=== PATIENT | female | born 1995 | race Caucasian/White ===

== ENCOUNTER → 2021-02-14 10:41 | Outpatient (CLI) | payer BC, SELFPAY ==
--- NOTE | 2021-02-14 10:47 | US_ITS ---
STUDY: FIRST TRIMESTER OBSTETRICAL ULTRASOUND REASON FOR EXAM: Female, 25 years old viability LMP: 01/08/2021. TECHNIQUE: Transvaginal TECHNICAL QUALITY: Adequate. PRIOR ULTRASOUND: None. FINDINGS: There is visualization of a single gestational sac in a normal intrauterine position. The mean sac diameter (MSD) measures 1.8 cm, indicating an estimated gestational age (EGA) of 6 weeks, 5 days. The gestational sac shape is within normal limits. There is a visualized yolk sac. The yolk sac measures 3 mm.. The placenta is non-visualized. There is visualization of a live embryo. The crown-rump length (CRL) measures 7 mm, indicating an estimated gestational age (EGA) of 6 weeks, 4 days. There is demonstrated cardiac activity with a heart rate of 129 bpm. The estimated gestation age (EGA) by LMP is 7 weeks, 2 days. The estimated date of delivery (VARUN) by LMP is 09/23/2021. The estimated gestation age (EGA) by US is 6 weeks, 4 days. The estimated date of delivery (VARUN) by US is 10/06/2021. The uterus measures 9.9 cm x 5.9 cm x 5.3 cm. There is no demonstrated uterine fibroid. The cervix is closed. The right ovary measures 4.3 cm x 2.6 cm x 2.7 centimeters. There is a 2 cm x 2.2 cm x 2.1 cm cyst. There is no visualized right adnexal mass or complex lesion. The left ovary measures 2.3 cm x 1.6 cm x 1.5 cm. There is no left ovarian cyst. There is no visualized left adnexal mass or complex lesion. There is no fluid in the cul de sac. US/Transvaginal w/Preg US IMPRESSION: Single live intrauterine gestation with a mean gestational age of 6 weeks and 4 days. 2.2 cm x 2 cm x 2.1 cm right ovarian cyst. Electronically Signed: Wilmer Ramey MD at 15:40 EST , Service support ,
== END ==
LOC: OPUS 10:42
PROVIDERS: Referring Provider Obstetrics & Gynecology; Visit Provider Obstetrics & Gynecology
DX: Z34.90 Encounter for supervision of normal pregnancy, unspecified, unspecified trimester (principal)
CPT/HCPCS: 76817

== ENCOUNTER → 2021-02-27 | Outpatient (CLI) | payer BC, SELFPAY ==
[2021-02-27 16:43] LABS: Protein, Urine (Random) 26.7 mg/dL (<11.9); Protein:Creat Ratio 118 mg/g CRE (0-200)
[2021-02-27 17:03] LABS: Amphetamine Urine VISTA NEGATIVE (<1000 ng/mL); Barbiturate Urine VISTA NEGATIVE (< 200 ng/mL); Benzodiazepine Urine VISTA NEGATIVE (< 200 ng/mL); Cocaine Urine VISTA NEGATIVE (< 300 ng/mL); Ecstacy Urine VISTA NEGATIVE (< 500 ng/mL); Methadone Urine VISTA NEGATIVE (< 300 ng/mL); PCP Urine VISTA NEGATIVE (< 25 ng/mL); THC Urine VISTA NEGATIVE (< 50 ng/mL); Vista UDS pH Range 7
[2021-03-04 21:07] LABS: Chlamydia By Nucleic Acid AMP Negative (Negative)
[2021-03-05 08:53] LABS: Gonococcus By Nucleic Acid AMP Negative (Negative)
[2021-03-06 11:47] LABS: HPV Reflexed? NOT INDICATED
== END | disposition home or self-care (01) ==
LOC: LABSPEC 15:57
PROVIDERS: Visit Provider Obstetrics & Gynecology
DX: O13.9 Gestational [pregnancy-induced] hypertension without significant proteinuria, unspecified trimester (principal); Z3A.00 Weeks of gestation of pregnancy not specified
CPT/HCPCS: 80307; 82570; 84156; 87086; 87088; 87491; 87591; 88175; G0145

== ENCOUNTER → 2021-03-26 09:13 | Outpatient (CLI) | payer BC, SELFPAY ==
[2021-03-26 10:35] LABS: Absolute Lymphocyte Count 1.27 X10^3/uL (0.83-4.51); Absolute Neutrophil Count 9.9 X10^3/uL (2.0-7.7); Basophil# 0.02 X10^3/uL; Basophil% 0.2 % (0-1); Eosinophil# 0.12 X10^3/uL; Hematocrit 36.7 % (37-47); Lymphocyte # 1.27 X10^3/ul (0.83-4.51); Lymphocyte % 10.8 % (19-41); Mean Corp Hgb Conc 35.4 g/dL (32-36); Mean Corpuscular Hgb 30.2 pg (27.0-32.0); Mean Corpuscular Volume 85.2 fL (81-99); Mean Platelet Vol. 10.8 fl (6.2-12.0); Monocyte# 0.47 X10^3/uL; NRBC Flagged by Analyzer 0 % (0-5); Neutrophil # 9.88 X10^3/uL (2.7-7.7); Neutrophil % 83.8 % (47-70); Platelet Count 242 K/mm3 (150-450); RBC Distribution Width CV 12.8 % (11.6-14.6); RBC Distribution Width SD 39.7 fl (35.1-43.9); Red Blood Count 4.31 M/mm3 (4.2-5.4); White Blood Count 11.8 K/mm3 (4.4-11.0)
[2021-03-26 11:26] LABS: Glucose Challenge Gest 1H 50g 152 mg/dL (70-140)
[2021-03-26 11:31] LABS: NATERA MAILED SPECIMEN
[2021-03-26 12:23] LABS: HIV - WCH Non-Reactive (Nonreactive); Hepatitis B Surface Antigen Non-Reactive (Nonreactive); Hepatitis C Antibody Non-Reactive (Nonreactive); Rubella IgG Reactive (Nonreactive); Syphilis Antibodies Non-reactive
[2021-03-28 11:08] LABS: Dilute Prothrombin Time (dPT) 29.5 sec (0.0-47.6); Dilute Russell Viper Venom 29.8 sec (0.0-47.0); PTT-LA 24.7 sec (0.0-51.9); Thrombin Time 16.3 sec (0.0-23.0); dPT Confirm Ratio 1.22 Ratio (0.00-1.34)
[2021-03-29 09:41] LABS: Anti-Cardiolipin Ab, IgA, Qn < 9 APL U/mL (0-11); Anti-Cardiolipin Ab, IgG, Qn < 9 GPL U/mL (0-14); Anti-Cardiolipin Ab, IgM, Qn 10 MPL U/mL (0-12); Beta-2-Glycoprotein I IgA <9 (0-25); Beta-2-Glycoprotein I IgG <9 (0-20); Beta-2-Glycoprotein I IgM <9 (0-32); Interpretation Comment: (.)
== END ==
PROVIDERS: Referring Provider Obstetrics & Gynecology; Visit Provider Obstetrics & Gynecology
DX: Z31.430 Encounter of female for testing for genetic disease carrier status for procreative management (principal); O26.21 Pregnancy care for patient with recurrent pregnancy loss, first trimester; O99.211 Obesity complicating pregnancy, first trimester; E66.9 Obesity, unspecified; Z3A.00 Weeks of gestation of pregnancy not specified
CPT/HCPCS: 36415; 82950; 85025; 86146; 86147; 86703; 86762; 86780; 86803; 86850; 86900; 86901; 87340

== ENCOUNTER 2021-04-09 09:55 | Outpatient (CLI) | payer BC, SELFPAY ==
[2021-04-09 11:14] LABS: Glucose GTT-Gestation. Fasting 85 mg/dL (<105)
[2021-04-09 12:25] LABS: Glucose GTT-Gestational 1 Hr 161 mg/dL (<190)
[2021-04-09 14:32] LABS: Glucose GTT-Gestational 2 Hr 115 mg/dL (<165)
[2021-04-09 14:32] LABS: Glucose GTT-Gestational 3 Hr 103 L (<145)
[2021-04-15 09:07] LABS: Dilute Prothrombin Time (dPT) 36.2 sec (0.0-47.6); Dilute Russell Viper Venom 32.9 sec (0.0-47.0); PTT-LA 32.4 sec (0.0-51.9); Thrombin Time 14.9 sec (0.0-23.0); dPT Confirm Ratio 1.27 Ratio (0.00-1.34)
[2021-04-15 13:28] LABS: Beta-2-Glycoprotein I IgA <9 (0-25); Beta-2-Glycoprotein I IgG <9 (0-20); Beta-2-Glycoprotein I IgM <9 (0-32); Interpretation Comment: (.)
== END 2021-04-09 23:59 | disposition short-term general hospital (02) ==
LOC: LAB 10:04
PROVIDERS: Referring Provider Obstetrics & Gynecology; Visit Provider Obstetrics & Gynecology
DX: Z13.0 Encounter for screening for diseases of the blood and blood-forming organs and certain disorders involving the immune mechanism (principal); Z82.49 Family history of ischemic heart disease and other diseases of the circulatory system
CPT/HCPCS: 36415; 81241; 82951; 82952; 86146

== ENCOUNTER 2021-07-17 11:06 | Outpatient (CLI) | payer BC, SELFPAY ==
[2021-07-17 11:25] LABS: Absolute Lymphocyte Count 1.28 X10^3/uL (0.83-4.51); Basophil# 0.03 X10^3/uL; Basophil% 0.2 % (0-1); Eosinophil# 0.07 X10^3/uL; Eosinophils% 0.5 % (0-5); Hematocrit 35.3 % (37-47); Hemoglobin 11.6 g/dL (12.0-15.0); Lymphocyte # 1.28 X10^3/ul (0.83-4.51); Lymphocyte % 9.9 % (19-41); Mean Corp Hgb Conc 32.9 g/dL (32-36); Mean Corpuscular Hgb 27.9 pg (27.0-32.0); Mean Corpuscular Volume 84.9 fL (81-99); Mean Platelet Vol. 11.3 fl (6.2-12.0); Monocyte# 0.54 X10^3/uL; Monocyte% 4.2 % (0-10); NRBC Flagged by Analyzer 0 % (0-5); Neutrophil # 10.97 X10^3/uL (2.7-7.7); Neutrophil % 84.6 % (47-70); Platelet Count 222 K/mm3 (150-450); RBC Distribution Width CV 13.2 % (11.6-14.6); RBC Distribution Width SD 40.7 fl (35.1-43.9); Red Blood Count 4.16 M/mm3 (4.2-5.4)
[2021-07-17 11:35] LABS: Glucose Challenge Gest 1H 50g 174 mg/dL (70-140)
== END 2021-07-17 23:59 | disposition home or self-care (01) ==
LOC: PAVLAB 11:07
PROVIDERS: Referring Provider Obstetrics & Gynecology; Visit Provider Obstetrics & Gynecology
DX: Z34.90 Encounter for supervision of normal pregnancy, unspecified, unspecified trimester (principal); Z3A.25 25 weeks gestation of pregnancy
CPT/HCPCS: 36415; 82950; 85025

== ENCOUNTER → 2021-08-12 | Outpatient (CLI) | payer BC, SELFPAY ==
--- NOTE | 2021-08-12 08:58 | US_ITS ---
STUDY: SECOND AND THIRD TRIMESTER OBSTETRICAL ULTRASOUND - LIMITED REASON FOR EXAM: Female, 25 years old chronic htn -- 32w LMP: 12/30/2020. PRIOR ULTRASOUND: Comparison is made with prior study of 02/14/2021. TECHNIQUE: Transabdominal TECHNICAL QUALITY: Adequate. FINDINGS: There is a single intrauterine fetus. The fetus is in a cephalic presentation. There is demonstrated cardiac activity with a heart rate of 153 bpm. There is a normal amniotic fluid volume. The largest amniotic fluid pocket measures 4.5 cm. The amniotic fluid index (NATALYA) is 15.3 cm. The placenta is posterior in location and is not low lying. There are Grade 2 placental changes. The cervix was not measured. Patient''s bladder wasn''t filled adequately. Patient refused a transvaginal examination. BIOMETRY: BPD: 8.1 cm: 32 weeks, 3 days HC: 29.7 cm: 32 weeks, 6 days AC: 28.8 cm: 32 weeks, 5 days FL: 6.5 cm: 33 weeks, 3 days Age by LMP: 32 weeks, 1 days. VARUN by LMP: 10/06/2021. age by prior US: 32 weeks, 6 days. VARUN by prior US: 10/01/2021. age by current US: 32 weeks, 5 days. VARUN by current US: 10/02/2021. Estimated weight: 2113 grams, +/- 317 grams, 69 percentile. US/OB Limited With Biometrics IMPRESSION: Single live intrauterine gestation with a mean gestational age of 32 weeks and 6 days. The measurements obtained today following thin the normal expected range. Electronically Signed: Wilmer Ramey MD at 11:10 EDT ,
== END | disposition home or self-care (01) ==
PROVIDERS: Visit Provider Obstetrics & Gynecology
DX: O10.913 Unspecified pre-existing hypertension complicating pregnancy, third trimester (principal); Z3A.32 32 weeks gestation of pregnancy
CPT/HCPCS: 76816

== ENCOUNTER → 2021-08-19 | Outpatient (CLI) | payer BC, SELFPAY ==
--- NOTE | 2021-08-19 09:02 | US_ITS ---
STUDY: SECOND AND THIRD TRIMESTER OBSTETRICAL ULTRASOUND - LIMITED REASON FOR EXAM: Female, 26 years old chronic htn -- 36w- -- NATALYA LMP: 12/30/2020. PRIOR ULTRASOUND: Comparison is made with prior examination dated 08/12/2021. TECHNIQUE: Transabdominal TECHNICAL QUALITY: Adequate. FINDINGS: There is a single intrauterine fetus. The fetus is in a cephalic presentation. There is demonstrated cardiac activity with a heart rate of 144 bpm. There is a normal amniotic fluid volume. The largest amniotic fluid pocket measures 6.84 cm. The amniotic fluid index (NATALYA) is 14.12 cm. The placenta is posterior in location and is not low lying. There are Grade 2 placental changes. The cervix measures 3.3 cm in length. BIOMETRY: Age by LMP: 33 weeks, 1 days. VARUN by LMP: 10/06/2021. US/OB Limited (No Biometrics) IMPRESSION: Normal amniotic fluid index. Electronically Signed: Wilmer Ramey MD at 12:31 EDT ,
== END | disposition home or self-care (01) ==
LOC: OPUS 08:59
PROVIDERS: Visit Provider Obstetrics & Gynecology
DX: O10.913 Unspecified pre-existing hypertension complicating pregnancy, third trimester (principal); Z3A.36 36 weeks gestation of pregnancy
CPT/HCPCS: 76815

== ENCOUNTER → 2021-08-26 | Outpatient (CLI) | payer BC, SELFPAY ==
--- NOTE | 2021-08-26 08:56 | US_ITS ---
STUDY: SECOND AND THIRD TRIMESTER OBSTETRICAL ULTRASOUND - LIMITED REASON FOR EXAM: Female, 26 years old NATALYA ONLY PRIOR ULTRASOUND: Limited obstetric ultrasound from 08/19/2021. TECHNIQUE: Limited transabdominal obstetric pelvic ultrasound performed. FINDINGS: Single live intrauterine fetus in cephalic presentation with heart rate of 155 BPM. Grade 2 fundal placenta with no placenta previa. Cervix is obscured by shadowing but appears closed, measuring grossly 3 cm length. Amniotic fluid index within normal limits, 8.9 cm. Largest vertical pocket of fluid measures 3.7 cm. Provided estimated gestational age of 34 weeks 1 day with VARUN of 10/06/2021. biometrics not performed. Maternal adnexa are not imaged. US/OB Limited (No Biometrics) IMPRESSION: Single live intrauterine with normal amniotic fluid index. Electronically Signed: Anthony Díaz MD at 3:41 EDT ,
== END | disposition home or self-care (01) ==
PROVIDERS: Visit Provider Obstetrics & Gynecology
DX: O10.919 Unspecified pre-existing hypertension complicating pregnancy, unspecified trimester (principal); Z3A.00 Weeks of gestation of pregnancy not specified
CPT/HCPCS: 76815

== ENCOUNTER 2021-08-28 19:50 | Outpatient (CLI) | payer BC, SELFPAY ==
[2021-08-28 20:18] VITALS: BMI 41.7
[2021-08-28 20:19] VITALS: TEMP 37.4; O2SAT 97
[2021-08-28 20:20] VITALS: BP 110/72; PULSE 96
[2021-08-28 21:20] LABS: ROM Internal Control Test YES-OK TO RESULT pt. (Internal QC); ROM Patient Test Negative (Negative)
--- NOTE | 2021-08-28 22:07 | OB.TRI.HP_ITS ---
HPI - General HPI Narrative ROBIN COTE, is a 26 y/o @ 35 weeks who presents to L&D with possible rupture of amniotic membranes. She states that she felt more than just urine escape while using the bathroom and also some cramping. The patient also admitted to intercourse earlier in the day. Maternal Data Information VARUN Calculator Estimated Delivery Date Method Current WG Current Estimate 10/06/21 Ultrasound #1 35w 3d Other Estimates 10/02/21 Ultrasound #2 36w 0d PFSH PFSH Home Medications multivitamin no.47-iron fum 27 mg-folate no.1 1 mg-dha 300 mg capsule 1 cap PO DAILY 02/26/21 [History Last Taken 08/30/21 08:00] nifedipine 30 mg tablet,extended release 24 hr 30 mg PO DAILY #30 tab 05/15/21 [Rx Last Taken 08/30/21 08:00] aspirin 81 mg tablet,delayed release 81 mg PO DAILY 08/02/21 [History Last Taken 08/30/21 08:00] blood sugar diagnostic #150 ea 08/02/21 [Rx Last Taken Unknown] lancets 33 gauge #150 ea 08/02/21 [Rx Last Taken Unknown] pen needle, diabetic 32 gauge x 5/32 #100 ea 08/09/21 [Rx Last Taken Unknown] insulin NPH isoph U-100 human [Humulin N NPH Insulin KwikPen] 12 unit SUBCUT BID 08/28/21 [History Last Taken 08/30/21 08:00] Allergy/AdvReac Type Severity Reaction Status Date / Time No Known Allergies Allergy Verified 09/03/21 09:51 Family History Other Heart disease Hypertension Surgical History H/O section Social History adopted: No household members: family housing: house number of children: 1 current occupational status: employed current occupation: RN pets and animals: Yes Smoking Status: Never smoker second hand exposure: Yes substance use type: does not use seatbelt use: always do you feel safe at home: Yes additional social history: Fianc?- [place] History 2 Elective abortions Hx Para 1 Spontaneous abortions Hx # Term Pregnancies Ectopic pregnancies Hx # Pregnancies 1 Multiple births # of living children 1 Past Pregnancies Del. Date Name GA/Weeks Outcome Route Bth Weight [facility] Kvng 33 live - 4lbs 10oz Male spinal Anahy Aguilar Dr. [place] Delivery Date: 09/24/13 DFM- STAT C/S Baby had blood clots in IVC & Pulmonary artery. Pulmonary atresia r/o. Placenta was calcified and had blood clots. GHTN. Nonsmoker. Placenta previa resolved at 22 weeks Vania Alejo Visit Details Expected Delivery Route/Plan RLTCS patient counseled regarding risks/benefits of trial of labor versus repeat . ACOG/uptodate education given to patient. 56 % likelihood of success per calculator TOLAC consent form signed: [] Labor Preferences- CB/BF classes: [] labor support person: [] labor intervention preferences: [] pain management options preferred: [] cut cord/dad catch: [] : [] PP control planned: [] discussed possible routes of delivery and associated risks: [] special requests: [] Plans Covid status: positive feb 2020. vaccinated. Flu vaccine: discussed. Tdap vaccine: [] Rhogam: [] LARC form signed: [] Problem list reviewed and updated with the most current plan of care details and appropriate orders placed. Relevant counseling for the gestational age provided. Continue routine care and follow up unless otherwise noted in visit notes/problem list details OB Flowsheet Initial Weight: 200 lb Date -?-?-?-?-?-?-?-?-?-?-?-?- EGA Weight BP Urine Prot -?-?-?-?-?-?-?-?-?-?-?-?- Glucose FHR FuHt Pres Dilation -?-?-?-?-?-?-?-?-?-?-?-?- Effaced St Visit Note 02/27/21 -?-?-?-?-?-?-?-?-?-?-?-?- 8w 3d 200 lb (+0 oz) 136/82 -?-?-?-?-?-?-?-?-?-?-?-?- -?-?-?-?-?-?-?-?-?-?-?-?- JV- CRL was calc ulated on 02/14 and VARUN is 10/05/2021. CRL today is 9w0d. no change in VARUN. Consulting mfm for h/o 31 week delivery due to low bpp and blood clots in IVC and pulm artery of the baby. 03/26/21 -?-?-?-?-?-?-?-?-?-?-?-?- 12w 2d 205 lb (+5 lb) 120/80 -?-?-?-?-?-?-?-?-?-?-?-?- 145 -?-?-?-?-?-?-?-?-?-?-?-?- JV- some labs st ill pending. note to not smoke the residents given. GCT today. 04/30/21 -?-?-?-?-?-?-?-?-?-?-?-?- 17w 2d 209 lb (+9 lb) 118/82 Negative -?-?-?-?-?-?-?-?-?-?-?-?- Negative 145 -?-?-?-?-?-?-?-?-?-?-?-?- SM- no vb lof cr amping 05/28/21 -?-?-?-?-?-?-?-?-?-?-?-?- 21w 2d 217 lb (+17 lb) 115/73 Negative -?-?-?-?-?-?-?-?-?-?-?-?- Negative 145 -?-?-?-?-?-?-?-?-?-?-?-?- SM- no vb lof go od fm no reuglar ctx discussed RLTCS and BS 06/25/21 -?-?-?-?-?-?-?-?-?-?-?-?- 25w 2d 221 lb (+21 lb) 110/76 Negative -?-?-?-?-?-?-?-?-?-?-?-?- Negative 140 25 -?-?-?-?-?-?-?-?-?-?-?-?- SM- no vb lof go od fm nor eugalr ctx 07/17/21 -?-?-?-?-?-?-?-?-?-?-?-?- 28w 3d 222 lb 4 oz (+22 lb 4 oz) 138/88 -?-?-?-?-?-?-?-?-?-?-?-?- 145 29 -?-?-?-?-?-?-?-?-?-?-?-?- JV- no cramping or spotting. no complaints. abnormal GCT of 176, pt does not want to do a 3 hr and would rather be seen by Dr. Smart and start monitoring glucose levels. 08/01/21 -?-?-?-?-?-?-?-?-?-?-?-?- 30w 4d 226 lb (+26 lb) 94/60 Negative -?-?-?-?-?-?-?-?-?-?-?-?- Negative 145 31 -?-?-?-?-?-?-?-?-?-?-?-?- SM- no vb lof in consistent fm at times, no regular ctx some increased pressure 08/14/21 -?-?-?-?-?-?-?-?-?-?-?-?- 32w 3d 227 lb (+27 lb) 102/72 -?-?-?-?-?-?-?-?-?-?-?-?- 140 -?-?-?--?-?-?-?-?-?-?-?-?- MH-NST only reac tive 08/16/21 -?-?-?-?-?-?-?-?-?-?-?-?- 32w 5d 225 lb 4 oz (+25 lb 4 oz) 130/78 Negative -?-?-?-?-?-?-?-?-?-?-?-?- Negative 130 -?-?-?-?-?-?-?-?-?-?-?-?- JV- pt is starti ng insulin today. had growth scan and has bpp on thursday. no lof, vaginal bleeding, or dec fm. 08/20/21 -?-?-?-?-?-?-?-?-?-?-?-?- 33w 2d 228 lb (+28 lb) 106/82 Negative -?-?-?-?-?-?-?-?-?-?-?-?- Negative 130 -?-?-?-?-?-?-?-?-?-?-?-?- SM- no vb lof so me fm dec when she has ctx, reassuring NST today. BS mostly controlled, increased to 132 is highest. 08/23/21 -?-?--?-?-?-?-?-?-?-?-?-?- 33w 5d 226 lb (+26 lb) 130/70 Negative -?-?-?-?-?-?-?-?-?-?-?-?- Negative 150 -?-?-?-?-?-?-?-?-?-?-?-?- JV- NST reactive . continue twice weekly. bpp thursday. growth up to date. next due beginning of September. 08/26/21 -?-?-?-?-?-?-?-?-?-?-?-?- 34w 1d 228 lb (+28 lb) 132/70 Negative -?-?-?-?-?-?-?-?-?-?-?-?- Negative 140 -?-?-?-?-?-?-?-?-?-?-?-?- Mh-NST only reac tive 08/28/21 -?-?--?-?-?-?-?-?-?-?-?-?- 34w 3d 228 lb 3.2 oz (+28 lb 3.2 oz) 110/72 -?-?-?-?-?-?-?-?-?-?-?-?- -?-?-?-?-?-?-?-?-?-?-?-?- 08/30/21 -?-?-?-?-?-?-?-?-?-?-?-?- 34w 5d 228 lb (+28 lb) 132/80 -?-?-?-?-?-?-?-?-?-?-?-?- 140 -?-?-?-?-?-?-?-?-?-?-?-?- fht variable- to l and d for extended monitoring and BPP 09/03/21 -?-?-?-?-?-?-?-?-?-?-?-?- 35w 2d 229 lb (+29 lb) 126/78 Trace -?-?-?-?-?-?-?-?-?-?-?-?- Negative 140 -?-?-?-?-?-?-?-?-?-?-?-?- MH-NST only reac tive. BPP completed earlier, results pending. ROS Constitutional Constitutional: Reports systems reviewed and no addt'l complaints, except as documented Gastrointestinal Gastrointestinal: Denies bloating, constipation, cramping, diarrhea, nausea or vomiting Genitourinary Genitourinary: Reports other Details: Denies vaginal odor, vaginal bleeding, or vaginal discharge ; Denies difficulty urinating or flank pain Physical Exam HEENT normocephalic Resp normal respiratory effort and normal air movement no CVA tenderness Amniotic Fluid: ROM+plus negative - and other Extremity normal to inspection General Extremity: edema bilateral (trace ) NST FHR Rate Baby A Baseline: 140 Variability:: Moderate Accelerations:: 15 x 15 Decelerations:: None NST Reactive:: Yes FHR Category:: Category I Assessment & Plan (1) Gestational diabetes: QUALIFIERS: Gestational diabetes mellitus control: insulin- controlled Trimester: third trimester Qualified Code(s): O24.414 - Gestational diabetes mellitus in , insulin controlled COMMENT: starting insulin 08/16/21 (2) Chronic hypertension: COMMENT: on procardia, delivery at 38w, CMP, CBC, urine pro creat, growth at 32w nl, and 36w, twice weekly NST at 32-delivery. Send referral to [facility] (3) Obesity affecting : QUALIFIERS: Trimester: third trimester Qualified Code(s): O99.213 - Obesity complicating , third trimester COMMENT: encouraged healthy weight gain. (4) Supervision of high risk , antepartum: COMMENT: PRR VARUN: 10/06/21 GIRL Magdalena PC: Kvng Marroquin?: [place] ([place] 2yr old) (5) H/O section: COMMENT: STAT C/S DFM at 33 weeks, RLTCSBS scheduled for 09/23 @ 7:30am SM (6) : QUALIFIERS: Weeks of gestation: 34 weeks Qualified Code(s): Z3A.34 - 34 weeks gestation of COMMENT: nl anatomy, growth US every 4 wks, 2x wkly NST at 32 wks, NIPT low risk, carrier- neg , NTAALYA borderline low, nl US 09/03 PLAN: False labor- pt will keep next scheduled office visit. dc to home. Charges/Coding Multi Select Codes Visit Charges Office Visit/Consults: 52612 OV L3 Est Urinary/Genital Urinary/Genital CPT Codes: 79538-75 non-stress test Interp
== END 2021-08-28 21:35 | disposition home or self-care (01) ==
LOC: WPOUT 19:58 → WP 19:58
PROVIDERS: Visit Provider Obstetrics & Gynecology
DX: O24.414 Gestational diabetes mellitus in pregnancy, insulin controlled (principal); O34.219 Maternal care for unspecified type scar from previous cesarean delivery; O10.013 Pre-existing essential hypertension complicating pregnancy, third trimester; O99.213 Obesity complicating pregnancy, third trimester; Z86.16 Personal history of COVID-19; Z3A.35 35 weeks gestation of pregnancy
CPT/HCPCS: 59050; 84112; 99218; G0378

== ENCOUNTER 2021-08-30 15:50 | Outpatient (CLI) | payer BC, SELFPAY ==
[2021-08-30 16:01] VITALS: BMI 42.0
--- NOTE | 2021-08-30 16:14 | US_ITS ---
rScriptor Unformatted Report Gender: Female Age: 26 years Exam: US Biophysical Profile W/O Nonst Comparison: Report from August 26, 2021, 4 quadrant NATALYA reported to be 8.9 cm, largest fluid pocket 3.7 cm. History: Nonreactive NST LIMITED WELL BEING EXAM NATALYA: 4 quadrant NATALYA 18.17 cm. Largest pocket 8.1 cm. Within normal limits. Single live intrauterine fetus, cephalic presentation. heart rate 152 bpm and 135 bpm. Fundal placenta. Grade 2. Biophysical profile: 88. Posterior 2 points each for breathing motion, gross body movements, tone and NATALYA. US/Biophysical Prof W/O Non Stres IMPRESSION: No acute complications of . Biophysical profile 88. Normal amniotic fluid volume. Electronically Signed: Mary Christianson MD at 23:11 EDT ,
[2021-08-30 16:29] VITALS: TEMP 37.2
[2021-08-30 16:30] VITALS: BP 131/71; PULSE 86; PULSE 91; O2SAT 98
[2021-08-30 17:53] LABS: Absolute Neutrophil Count 9.4 X10^3/uL (2.0-7.7); Basophil# 0.01 X10^3/uL; Basophil% 0.1 % (0-1); Eosinophil# 0.04 X10^3/uL; Eosinophils% 0.3 % (0-5); Hematocrit 34.9 % (37-47); Hemoglobin 11.4 g/dL (12.0-15.0); Lymphocyte % 11.3 % (19-41); Mean Corp Hgb Conc 32.7 g/dL (32-36); Mean Corpuscular Hgb 27.2 pg (27.0-32.0); Mean Corpuscular Volume 83.3 fL (81-99); Mean Platelet Vol. 12.4 fl (6.2-12.0); Monocyte# 0.73 X10^3/uL; Monocyte% 6.3 % (0-10); NRBC Flagged by Analyzer 0 % (0-5); Neutrophil # 9.38 X10^3/uL (2.7-7.7); Neutrophil % 81.6 % (47-70); Platelet Count 211 K/mm3 (150-450); RBC Distribution Width CV 14.2 % (11.6-14.6); RBC Distribution Width SD 42.6 fl (35.1-43.9); Red Blood Count 4.19 M/mm3 (4.2-5.4); White Blood Count 11.5 K/mm3 (4.4-11.0)
--- NOTE | 2021-09-03 16:18 | OB.TRI.PN_ITS ---
Progress Notes Date of Service: 08/30/21 Progress Note: Patient presents for triage evaluation secondary to variable decel and contractions FHT: 140 Moderate variability reactive no decelerations category I tracing [place]: irregular and irritability Contractions Assessment and plan: threatened labor, no cervical change bpp 8/8 Reactive NST, reassuring maternal and status patient discharged to home to follow-up as scheudled. See problem list details for additional plan information. Laboratory Studies: Laboratory Tests 08/30/21 08/30/21 Range/Units 17:30 17:30 WBC 11.5 H (4.4-11.0) K/mm3 RBC 4.19 L (4.2-5.4) M/mm3 Hgb 11.4 L (12.0-15.0) g/dL Hct 34.9 L (37-47) % MCV 83.3 (81-99) fL MCH 27.2 (27.0-32.0) pg MCHC 32.7 (32-36) g/dL RDW Std Deviation 42.6 (35.1-43.9) fl RDW Coeff of [place] 14.2 (11.6-14.6) % Plt Count 211 (150-450) K/mm3 MPV 12.4 H (6.2-12.0) fl Immature Gran % (Auto) 0.400 (0.0-0.9) % Neut % (Auto) 81.6 H (47-70) % Lymph % (Auto) 11.3 L (19-41) % [place] % (Auto) 6.3 (0-10) % Eos % (Auto) 0.3 (0-5) % Baso % (Auto) 0.1 (0-1) % Absolute Neuts (auto) 9.4 H (2.0-7.7) X10^3/uL Absolute Lymphs (auto) 1.30 (0.83-4.51) X10^3/uL Nucleated RBC % 0 (0-5) % Blood Type B POSITIVE Antibody Screen NEGATIVE
== END 2021-08-30 19:00 | disposition home or self-care (01) ==
LOC: WPOUT 15:54 → WP 15:54
PROVIDERS: Obstetrics & Gynecology; Referring Provider Obstetrics & Gynecology; Visit Provider Obstetrics & Gynecology
DX: O47.9 False labor, unspecified (principal)
CPT/HCPCS: 96360; 36415; 59025; 59050; 76819; 85025; 86850; 86900; 86901; 99218; G0378

== ENCOUNTER → 2021-09-03 | Outpatient (CLI) | payer BC, SELFPAY ==
--- NOTE | 2021-09-03 08:52 | US_ITS ---
HISTORY: NATALYA borderline low. TECHNIQUE: Transabdominal pelvic ultrasound was performed. 33 images. COMPARISON: 08/30/2021. FINDINGS: INTRAUTERINE GESTATION(s): Single. PRESENTATION: Cephalic. PLACENTA: Fundal and grade 3. CERVIX: 3.3 cm in length and closed. HEART MOTION: 145 bpm. AMNIOTIC FLUID INDEX (NATALYA): 16.6 cm. Largest fluid pocket 5.9 cm. US/OB Limited (No Biometrics) IMPRESSION: Single living intrauterine . Amniotic fluid index 16.6 cm, within normal limits Electronically Signed: Sulma Rosenbaum MD at 14:00 EDT ,
== END | disposition home or self-care (01) ==
LOC: OPUS 08:50
PROVIDERS: Visit Provider Obstetrics & Gynecology
DX: Z34.90 Encounter for supervision of normal pregnancy, unspecified, unspecified trimester (principal)
CPT/HCPCS: 76815

== ENCOUNTER → 2021-09-09 | Outpatient (CLI) | payer BC, SELFPAY ==
--- NOTE | 2021-09-09 08:48 | US_ITS ---
STUDY: SECOND AND THIRD TRIMESTER OBSTETRICAL ULTRASOUND REASON FOR EXAM: Female, 26 years old GROWTH LMP: 12/30/2020. TECHNIQUE: Transabdominal TECHNICAL QUALITY: Adequate. PRIOR ULTRASOUND: Comparison is made with prior study dated 08/12/2021 and 09/03/2021. FINDINGS: There is a single intrauterine fetus. The fetus is in a cephalic presentation. There is demonstrated cardiac activity with a heart rate of 131 bpm. There is a normal amniotic fluid volume. The largest amniotic fluid pocket measures 5.7 cm. The amniotic fluid index (NATALYA) is 16.2 cm. The placenta is fundal in location. There are Grade 2 placental changes. Cervical length was not measured due to the head position.. The adnexal regions are not visualized. BIOMETRY: BPD: 8.56 cm: 34 weeks, 3 days HC: 31.09 cm: 34 weeks, 5 days AC: 33.63 cm: 37 weeks, 3 days FL: 7.22 cm: 36 weeks, 6 days CI: 79% FL/BPD: 84% FL/HC: FL/AC: 21% HC/AC: 0.92 age by current US: 35 weeks, 3 days. VARUN by current US: 10/11/2021. Estimated weight: 3081 grams, +/- 462 grams, 73 %. age by prior US: 36 weeks, 5 days. VARUN by prior US: 10/02/2021. Age by LMP: 36 weeks, 1 days. VARUN by LMP: 10/06/2021. US/OB Limited With Biometrics IMPRESSION: Single live uterine gestation with a mean gestational age of 36 weeks and 5 days. The measurements obtained today following within the normal expected range. Electronically Signed: Wilmer Ramey MD at 12:41 EDT ,
== END | disposition home or self-care (01) ==
LOC: OPUS 08:48
PROVIDERS: Referring Provider Obstetrics & Gynecology; Visit Provider Obstetrics & Gynecology
DX: Z34.93 Encounter for supervision of normal pregnancy, unspecified, third trimester (principal); Z3A.35 35 weeks gestation of pregnancy
CPT/HCPCS: 76816

== ENCOUNTER → 2021-09-13 | Outpatient (CLI) | payer BC, SELFPAY | END | disposition home or self-care (01) | LOC: LABSPEC 13:39 | PROVIDERS: Visit Provider Obstetrics & Gynecology | DX: O09.90 Supervision of high risk pregnancy, unspecified, unspecified trimester (principal) | CPT/HCPCS: 87081 ==

== ENCOUNTER 2021-09-16 12:30 | Inpatient (IN) | payer BC, SELFPAY ==
[2021-09-16] VITALS (14 sets, daily range): BP systolic 100–124; BP diastolic 49–73; PULSE 69–92; RESP 12–18; TEMP 36.3–36.9; O2SAT 96–99; BMI 42.9
--- NOTE | 2021-09-16 13:04 | HP.PCM.OB_ITS ---
HPI - General General Date of Admission: 09/16/21 HPI Narrative ROBIN COTE, is a 26 F who presents with non reactive nst in office with a heart rate variable deceleration, and has had persistent changes in insulin without adequate control of blood sugars so the decision was made to proceed with delivery. Maternal Data Information VARUN Calculator Estimated Delivery Date Method Current WG Current Estimate 10/06/21 Ultrasound #1 37w 1d Other Estimates 10/02/21 Ultrasound #2 37w 5d PFSH PFSH Home Medications multivitamin no.47-iron fum 27 mg-folate no.1 1 mg-dha 300 mg capsule 1 cap PO DAILY 02/26/21 [History Last Taken 09/16/21 07:30] aspirin 81 mg tablet,delayed release 81 mg PO DAILY 08/02/21 [History Last Taken 09/16/21 07:30] blood sugar diagnostic #150 ea 08/02/21 [Rx Last Taken Unknown] lancets 33 gauge #150 ea 08/02/21 [Rx Last Taken Unknown] pen needle, diabetic 32 gauge x 5/32 #100 ea 08/09/21 [Rx Last Taken Unknown] insulin NPH isoph U-100 human [Humulin N NPH Insulin KwikPen] 14 unit SUBCUT BID 08/28/21 [History Last Taken 09/16/21 07:30] nifedipine [Procardia XL] 30 mg PO DAILY 09/16/21 [History Last Taken 09/16/21 07:30] Allergy/AdvReac Type Severity Reaction Status Date / Time No Known Allergies Allergy Verified 09/16/21 12:57 Family History Other Heart disease Hypertension Surgical History H/O section Social History adopted: No household members: family housing: house number of children: 1 current occupational status: employed current occupation: RN pets and animals: Yes Smoking Status: Never smoker second hand exposure: Yes substance use type: does not use seatbelt use: always do you feel safe at home: Yes additional social history: Fianc?- Dalton History 2 Elective abortions Hx Para 1 Spontaneous abortions Hx # Term Pregnancies Ectopic pregnancies Hx # Pregnancies 1 Multiple births # of living children 1 Past Pregnancies Del. Date Name GA/Weeks Outcome Route Bth Weight Gen Labor Lgth Anesthesia Del Locatn Provider FOB 09/24/13 Kvng 33 live - 4lbs 10oz Male spinal Anahy [place] Delivery Date: 09/24/13 DFM- STAT C/S Baby had blood clots in IVC & Pulmonary artery. Pulmonary atresia r/o. Placenta was calcified and had blood clots. GHTN. Nonsmoker. Placenta previa resolved at 22 weeks Vania Alejo Visit Details Expected Delivery Route/Plan RLTCS patient counseled regarding risks/benefits of trial of labor versus repeat . ACOG/uptodate education given to patient. 56 % likelihood of success per calculator TOLAC consent form signed: [] Labor Preferences- CB/BF classes: [] labor support person: [] labor intervention preferences: [] pain management options preferred: [] cut cord/dad catch: [] : [] PP control planned: [] discussed possible routes of delivery and associated risks: [] special requests: [] Plans Covid status: positive feb 2020. vaccinated. Flu vaccine: discussed. Tdap vaccine: [] Rhogam: [] LARC form signed: [] Problem list reviewed and updated with the most current plan of care details and appropriate orders placed. Relevant counseling for the gestational age provided. Continue routine care and follow up unless otherwise noted in visit notes/problem list details OB Flowsheet Initial Weight: 200 lb Date -?-?-?-?-?-?-?-?-?-?-?-?- EGA Weight BP Urine Prot -?-?-?-?-?-?-?-?-?-?-?-?- Glucose FHR FuHt Pres Dilation -?-?-?-?-?-?-?-?-?-?-?-?- Effaced St Visit Note 02/27/21 -?-?-?-?-?-?-?-?-?-?-?-?- 8w 3d 200 lb (+0 oz) 136/82 -?-?-?-?-?-?-?-?-?-?-?-?- -?-?-?-?-?-?-?-?-?-?-?-?- JV- CRL was calc ulated on 02/14 and VARUN is 10/05/2021. CRL today is 9w0d. no change in VARUN. Consulting mfm for h/o 31 week delivery due to low bpp and blood clots in IVC and pulm artery of the baby. 03/26/21 -?-?-?-?-?-?-?-?-?-?-?-?- 12w 2d 205 lb (+5 lb) 120/80 -?-?-?-?-?-?-?-?-?-?-?-?- 145 -?-?-?-?-?-?-?-?-?-?-?-?- JV- some labs st ill pending. note to not smoke the residents given. GCT today. 04/30/21 -?-?-?-?-?-?-?-?-?-?-?-?- 17w 2d 209 lb (+9 lb) 118/82 Negative -?-?-?-?-?-?-?-?-?-?-?-?- Negative 145 -?-?-?-?-?-?-?-?-?-?-?-?- SM- no vb lof cr amping 05/28/21 -?-?-?-?-?-?-?-?-?-?-?-?- 21w 2d 217 lb (+17 lb) 115/73 Negative -?-?-?-?-?-?-?-?-?-?-?-?- Negative 145 -?-?-?-?-?-?-?-?-?-?-?-?- SM- no vb lof go od fm no reuglar ctx discussed RLTCS and BS 06/25/21 -?-?-?-?-?-?-?-?-?-?-?-?- 25w 2d 221 lb (+21 lb) 110/76 Negative -?-?-?-?-?-?-?-?-?--?-?-?- Negative 140 25 -?-?-?-?-?-?-?-?-?-?-?-?- SM- no vb lof go od fm nor eugalr ctx 07/17/21 -?-?-?-?-?-?-?-?-?-?-?-?- 28w 3d 222 lb 4 oz (+22 lb 4 oz) 138/88 -?-?-?-?-?-?-?-?-?-?-?-?- 145 29 -?-?-?-?-?-?-?-?-?-?-?-?- JV- no cramping or spotting. no complaints. abnormal GCT of 176, pt does not want to do a 3 hr and would rather be seen by Dr. Smart and start monitoring glucose levels. 08/01/21 -?-?-?-?-?-?-?-?-?-?-?-?- 30w 4d 226 lb (+26 lb) 94/60 Negative -?-?-?-?-?-?-?-?-?-?-?-?- Negative 145 31 -?-?-?-?-?-?-?-?-?-?-?-?- SM- no vb lof in consistent fm at times, no regular ctx some increased pressure 08/14/21 -?-?-?-?-?-?-?-?-?-?-?-?- 32w 3d 227 lb (+27 lb) 102/72 -?-?-?-?-?-?-?-?-?-?-?-?- 140 -?-?-?-?-?-?-?-?-?-?-?-?- MH-NST only reac tive 08/16/21 -?-?-?-?-?-?-?-?-?-?-?-?- 32w 5d 225 lb 4 oz (+25 lb 4 oz) 130/78 Negative -?-?-?-?-?-?-?-?-?-?-?-?- Negative 130 -?-?-?-?-?-?-?-?-?-?-?-?- JV- pt is starti ng insulin today. had growth scan and has bpp on thursday. no lof, vaginal bleeding, or dec fm. 08/20/21 -?-?-?-?-?-?-?-?-?-?-?-?- 33w 2d 228 lb (+28 lb) 106/82 Negative -?-?-?-?--?-?-?-?-?-?-?-?- Negative 130 -?-?-?-?-?-?-?-?-?-?-?-?- SM- no vb lof so me fm dec when she has ctx, reassuring NST today. BS mostly controlled, increased to 132 is highest. 08/23/21 -?-?-?-?-?-?-?-?-?-?-?-?- 33w 5d 226 lb (+26 lb) 130/70 Negative -?-?-?-?-?-?-?-?-?-?-?-?- Negative 150 -?-?-?-?-?-?-?-?-?-?-?-?- JV- NST reactive . continue twice weekly. bpp thursday. growth up to date. next due beginning of September. 08/26/21 -?-?-?-?-?-?-?-?-?-?-?-?- 34w 1d 228 lb (+28 lb) 132/70 Negative -?-?-?-?-?-?-?-?-?-?-?-?- Negative 140 -?-?-?-?-?-?-?-?-?-?-?-?- Mh-NST only reac tive 08/28/21 -?-?-?-?-?-?-?-?-?-?-?-?- 34w 3d 228 lb 3.2 oz (+28 lb 3.2 oz) 110/72 -?-?-?-?-?-?-?-?-?-?-?-?- -?-?-?-?-?-?-?-?-?-?-?-?- 08/30/21 -?-?-?-?-?-?-?-?-?-?-?-?- 34w 5d 228 lb (+28 lb) 132/80 -?-?-?-?-?-?-?-?-?-?-?-?- 140 -?-?-?-?-?-?-?-?-?-?-?-?- fht variable- to l and d for extended monitoring and BPP 09/03/21 -?-?-?-?-?-?-?-?-?-?-?-?- 35w 2d 229 lb (+29 lb) 126/78 Trace -?-?-?-?-?-?-?-?-?-?-?-?- Negative 140 -?-?-?-?-?-?-?-?-?-?-?-?- -NST only reac tive. BPP completed earlier, results pending. 09/06/21 -?-?-?-?-?-?-?-?-?-?-?-?- 35w 5d 231 lb 6 oz (+31 lb 6 oz) 138/80 Negative -?-?-?-?-?-?-?-?-?-?-?-?- Negative 140 -?-?-?-?-?-?-?-?-?-?-?-?- JV- no lof ,vagi nal bleeding or dec fm. fasting glucose levels are normal however 2 hr pp are still 130-140. starting r insulin. 09/09/21 -?-?-?-?-?-?-?-?-?-?-?-?- 36w 1d 230 lb (+30 lb) 124/80 Negative -?-?-?-?-?-?-?-?-?-?-?-?- Negative 140 -?-?-?-?-?-?-?-?-?-?-?-?- -NST only reac tive 09/13/21 -?-?-?-?-?-?-?-?-?-?-?-?- 36w 5d 253 lb (+53 lb) 128/82 Negative -?-?-?-?-?-?-?-?-?-?-?-?- Negative 140 37 -?-?-?-?-?-?-?-?-?-?-?-?- JV- nst reactive . GBs collected. rpt section scheduled. glucose log reviewed. 09/16/21 -?-?-?-?-?-?-?-?-?-?-?-?- 37w 1d 231 lb 4 oz (+31 lb 4 oz) 120/82 120/82 1+ -?-?-?-?-?-?-?-?-?-?-?-?- Negative -?-?-?--?-?-?-?-?-?-?-?-?- 09/16/21 -?-?-?-?-?-?-?-?-?-?-?-?- 37w 1d 234 lb 9.149 oz (+34 lb 9.149 oz) -?-?-?-?-?-?-?-?-?-?-?-?- -?-?-?-?-?-?-?-?-?-?-?-?- NST FHR Rate Baby A Baseline: 130 Variability:: Moderate Uterine Activity:: irregular ROS Constitutional Constitutional: Reports systems reviewed and no addt'l complaints, except as documented Eyes Eyes: Denies change in vision ENT HEENT: Reports systems reviewed and no addt'l complaints, except as documented; Denies headache(s) Cardiovascular Cardiovascular: Reports systems reviewed and no addt'l complaints, except as documented; Denies chest pain or dyspnea Respiratory/Chest Respiratory/Chest: Reports systems reviewed and no addt'l complaints, except as documented Gastrointestinal Gastrointestinal: Reports systems reviewed and no addt'l complaints, except as documented; Denies abdominal pain Genitourinary Genitourinary: Reports systems reviewed and no addt'l complaints, except as documented, contractions Details: present (irregular) and movement Details: present; Denies dysuria or genital lesions Musculoskeletal Musculoskeletal: Reports systems reviewed and no addt'l complaints, except as documented Neurologic Neurologic: Reports systems reviewed and no addt'l complaints, except as documented Endocrine Endocrinology: Reports systems reviewed and no addt'l complaints, except as documented Vital Signs Vital Signs Vital Signs: Weight Weight: 234 lb 9.149 oz Body Mass Index (BMI) 42.9 Physical Exam Const alert, oriented x3, no apparent distress and healthy appearing HEENT normocephalic and moist oral mucous membranes Head and Scalp: atraumatic Neck full ROM, no lymphadenopathy, supple and thyroid normal General: trachea midline Lymph Lymphatic: no lymphadenopathy noted Chest inspection of chest normal Resp normal respiratory effort Cardio regular rate GI normal to inspection, nondistended, normoactive bowel sounds, soft to palpation and non-tender Inspection: gravid external exam normal Manual OB Exam: estimated gestational size appropriate, presentation cephalic, dilated, effaced and station Extremity normal to inspection General Extremity: Negative for edema Skin no rashes or lesions noted Neuro no focal motor deficits and deep tendon reflexes 2+ bilaterally Motor Exam: strength 5/5 throughout and clonus absent Psych mental status grossly normal Labs Labs Labs: Blood Type B POSITIVE Antibody Screen NEGATIVE Hct 34.9 % (37-47) L Hgb 11.4 g/dL (12.0-15.0) L Obstetrics US Syphilis Total Ab Non-reactive Rubella IgG Antibody Reactive (Nonreactive) Hep Bs Antigen Non-Reactive (Nonreactive) Chlamydia DNA ([place]) Negative (Negative) Neisseria gonorrhoeae DNA ([place]) Negative (Negative) HIV 1&2 Antibody Non-Reactive (Nonreactive) Glucose 1 Hr 50 gm 174 mg/dL (70-140) H Assessment & Plan (1) Variable heart rate decelerations, antepartum: (2) Non-reactive NST (non-stress test): (3) Gestational diabetes: QUALIFIERS: Gestational diabetes mellitus control: insulin- controlled Trimester: third trimester Qualified Code(s): O24.414 - Gestational diabetes mellitus in , insulin controlled COMMENT: not well controlled, needing to continue increasing dosage of insulin, will proceed with immediate delivery due to FHT and BS management. (4) Chronic hypertension: COMMENT: on procardia, delivery at 38w, CMP, CBC, urine pro creat, growth at 32w nl, and 36w nl, twice weekly NST at 32-delivery. Send referral to [facility] (5) Obesity affecting : QUALIFIERS: Trimester: third trimester Qualified Code(s): O99.213 - Obesity complicating , third trimester COMMENT: encouraged healthy weight gain. (6) Supervision of high risk , antepartum: COMMENT: PRR VARUN: 10/06/21 GIRL Magdalena PC: Kvng Marroquin?: Dalton ([place] 2yr old) (7) H/O section: COMMENT: STAT C/S DFM at 33 weeks, RLTCSBS scheduled for 09/23 @ 7:30am SM (8) : QUALIFIERS: Weeks of gestation: 36 weeks Qualified Code(s): Z3A.36 - 36 weeks gestation of COMMENT: nl anatomy, growth US every 4 wks, 2x wkly NST at 32 wks, NIPT low risk, carrier- neg , NATALYA borderline low, nl US 09/03 PLAN: proceed with RLTCS and BS
[2021-09-16] MEDS: Lactated Ringers 1,000 ML 150 ML IV (13:05)
[2021-09-16 13:15] LABS: Bedside Glucose 84 mg/dL (74-106)
--- NOTE | 2021-09-16 13:17 | OP.PCM_ITS ---
Assessment & Plan (1) Variable heart rate decelerations, antepartum: (2) Non-reactive NST (non-stress test): (3) Gestational diabetes: QUALIFIERS: Gestational diabetes mellitus control: insulin- controlled Trimester: third trimester Qualified Code(s): O24.414 - Gestational diabetes mellitus in , insulin controlled COMMENT: not well controlled, needing to continue increasing dosage of insulin, will proceed with immediate delivery due to FHT and BS management. (4) Chronic hypertension: COMMENT: on procardia, delivery at 38w, CMP, CBC, urine pro creat, growth at 32w nl, and 36w nl, twice weekly NST at 32-delivery. Send referral to [facility] (5) Obesity affecting : QUALIFIERS: Trimester: third trimester Qualified Code(s): O99.213 - Obesity complicating , third trimester COMMENT: encouraged healthy weight gain. (6) Supervision of high risk , antepartum: COMMENT: PRR VARUN: 10/06/21 GIRL Rylynn PC: Kvng Marroquin?: Dalton ([place] 2yr old) (7) H/O section: COMMENT: STAT C/S DFM at 33 weeks, RLTCSBS scheduled for 09/23 @ 7:30am (8) : QUALIFIERS: Weeks of gestation: 36 weeks Qualified Code(s): Z3A.36 - 36 weeks gestation of COMMENT: nl anatomy, growth US every 4 wks, 2x wkly NST at 32 wks, NIPT low risk, carrier- neg , NATALYA borderline low, nl US 09/03 (9) delivery delivered: COMMENT: RLTCS BS girl [place] diabetes non reactive nst chtn 37 Maternal Data Information VARUN Calculator Estimated Delivery Date Method Current WG Current Estimate 10/06/21 Ultrasound #1 37w 1d Other Estimates 10/02/21 Ultrasound #2 37w 5d Final VARUN Source: LMP Details Operative Information Pre-Operative Diagnosis: Previous , uncontrolled diabetes, non reactive NST heart rate variable, cHTN, desired sterilization Post-Operative Diagnosis: same Indications for : Repeat Elective (and bilateral salpingectomy) Classification: Scheduled Type of Anesthesia: Spinal Special Medications: none Antibiotic Given: Ancef 2 grams IV x1 Drain: Gardner to straight drain Estimated Blood Loss: 800 Fluids Replaced: crystalloid Findings Description of Procedure: Spinal anesthesia was placed without difficulty. Gardner catheter was placed. The patient was placed in the dorsal supine position with leftward tilt. Patient was prepped and draped in the normal sterile fashion. Pfannenstiel skin incision was made with the scalpel and carried through to the underlying layer of fascia with the scalpel. Fascia was nicked in the midline and the incision extended laterally. The rectus bellies were dissected off superiorly and inferiorly with out complication both sharply and bluntly. The peritoneum was entered digitally. The incision was stretched and a low transverse uterine incision was made with the scalpel. The 's head was delivered atraumatically followed by the anterior and posterior shoulders without complication the rest of the delivered. The cord was clamped and cut and the was handed off to awaiting nurse. The placenta was delivered spontaneously immediately following and was noted to be intact and have a three- vessel cord. The uterus was exteriorized cleared of all clots and debris, and the incision was closed in a double layer closure using #1 Monocryl. The ovaries and fallopian tubes were noted to be within normal limits. Patient had desired sterilization and was counseled preoperatively regarding irreversibility and permanency. Therefore bilateral fallopian tubes were elevated and transected across using a LigaSure device starting proximally to distally without complication the entire fallopian tubes were removed. The uterus was returned to the maternal abdomen and gutters were cleared of all clots and debris. leon applied to obtain hemostasis. The peritoneum was closed with 3-0 Monocryl in a running fashion. Gloves were changed prior to fascial closure. Fascia was closed with 0 PDS in a running fashion. Subcutaneous tissue was treated with leon also for oozing and the skin was closed with 3-0 Monocryl in a subcuticular fashion. Mepilex dressing was applied without complication. Patient was taken to recovery in stable condition. Amniotic Membrane Rupture Type: Artificial Amniotic Fluid Description: Clear Placenta Disposition: [facility] Cord Vessel Description: 3 Vessels Cord Entanglement: None Delayed Cord Clamping: Yes Complications Risks of Surgery Discussed w/Patient: Bleeding, Infection, Need for Future C- Sections and Injury to surrounding structure(s) including bowel and bladder Vaginal Delivery Complication Complications: None Admit VTE Documentation VTE Present on Admission: No VTE Mechan Device Prophylaxis: SCD's Multi Select Codes Urinary/Genital Urinary/Genital CPT Codes: 63282 C/S+TL (bilateral salpingectomy) and 22701 Delivery [facility]
[2021-09-16] MEDS: Dext 5%-0.45% NS 1,000 ML 125 ML IV (13:20)
[2021-09-16 13:47] LABS: Absolute Lymphocyte Count 1.18 X10^3/uL (0.83-4.51); Basophil# 0.02 X10^3/uL; Basophil% 0.2 % (0-1); Eosinophil# 0.05 X10^3/uL; Eosinophils% 0.4 % (0-5); Hematocrit 35.4 % (37-47); Hemoglobin 11.5 g/dL (12.0-15.0); Lymphocyte # 1.18 X10^3/ul (0.83-4.51); Lymphocyte % 10.5 % (19-41); Mean Corp Hgb Conc 32.5 g/dL (32-36); Mean Corpuscular Hgb 26.7 pg (27.0-32.0); Mean Corpuscular Volume 82.3 fL (81-99); Mean Platelet Vol. 12.8 fl (6.2-12.0); Monocyte# 0.89 X10^3/uL; Monocyte% 7.9 % (0-10); NRBC Flagged by Analyzer 0 % (0-5); Neutrophil # 9.01 X10^3/uL (2.7-7.7); Neutrophil % 80.5 % (47-70); Platelet Count 221 K/mm3 (150-450); Prothrombin Time (Protime)PT. 13.1 SECONDS (11.7-14.9); RBC Distribution Width CV 14.8 % (11.6-14.6); RBC Distribution Width SD 44.1 fl (35.1-43.9); White Blood Count 11.2 K/mm3 (4.4-11.0)
[2021-09-16 13:48] LABS: Partial Thromboplast Time 26.2 Seconds (24.1-36.2)
[2021-09-16 14:16] LABS: Bedside Glucose 91 mg/dL (74-106)
[2021-09-16 14:21] LABS: AST(SGOT) 30 U/L (15-37); Alanine Aminotransfer ALT/SGPT 16 U/L (13-56); Creatinine, Serum 0.51 mg/dL (0.55-1.02); EST Glomerular Filtration Rate 154 mL/min (>60); Est Glom Filt Rate - Afr Amer 186 mL/min (>60); Estimated Creatinine Clearance 129.89 ml/min; Uric Acid 5.2 mg/dL (2.6-6.0)
[2021-09-16] MEDS: Lactated Ringers 1,000 ML 999 ML IV (15:05)
[2021-09-16] MEDS: Acetaminophen 500 MG Tablet 1000 MG PO ×2 (15:06→22:35)
[2021-09-16 15:26] LABS: Bedside Glucose 77 mg/dL (74-106)
[2021-09-16] MEDS: Sodium Citrate/Citric Acid 30 ML UDC PO (16:03)
[2021-09-16] MEDS: Cefazolin 2 GM in 0.9% Normal Saline 100 ML IV (16:08)
--- NOTE | 2021-09-16 16:34 | FALS_PTH ---
PATIENT: ROBIN COTE LOC: [facility] U#:[id number] AGE/SX: 26/F ROOM: WP007 RE09/16/[address]: Dr. Usha Izquierdo MD : 1995 BED: 1 DIS: 09/18/2021 SPEC #: [id number] RECD: 09/16/21 18:00 STATUS: LINDA CESAR #: [id number] CORAL: 09/16/21 16:[address]: Usha Izquierdo DEPT: SURGICAL PATHOLOGY RECD BY: Russ Lam ENTERED: 09/17/21 12:04 SP TYPE: FALL TUBES OTHR DR: No Primary Care Phys Tissues: Fallopian tube Procedures: Surgery Specimen Level II HEADER OPERATION: Tubal ligation PRE-OP DIAGNOSIS: Sterilization TISSUE SUBMITTED: Bilateral fallopian tubes, tie in left MICROSCOPIC DIAGNOSIS Bilateral fallopian tubes, salpingectomy: Bilateral fallopian tubes, no pathologic diagnosis. Focal decidual changes serosal surface left fallopian tube. Left paratubal cyst. BAHMAN:tiffany 09/18/2021 MICROSCOPIC DESCRIPTION Slides are reviewed. GROSS DESCRIPTION Received in fixative is one container labeled with the patient's name and designated bilateral fallopian tubes, tie on left fallopian tube. The specimen consists of bilateral fallopian tubes including fimbrial ends measuring 6.5 cm in length and 0.6 cm in diameter. Sections reveal unremarkable cut surfaces. Director Of Vocational Guidance sections are submitted in two cassettes as follows: 1 ? right fallopian tube, 2 ? left fallopian tube. / BAHMAN:tiffany 09/17/2021 TC:3 CPT: 45002 x2
--- NOTE | 2021-09-16 17:08 | PCM.DC ---
Discharge Instructions Diet Discharge Diet: No restrictions Activity Discharge Activity: May Not Drive (for 2 weeks or while taking narcotic pain medications.), May Shower and May Take a Tub Bath (in 7 days) May shower in (days): 0 May resume sexual activity in: 4-6 weeks Weight Bearing Status: Full weight bearing Lifting Restrictions: 20 pounds Dressing / Incision Call your doctor if your incision/area has: Continuous Slow Oozing, Sudden Increased Bleeding, Increased Pain/ Swelling, Increased Redness and Foul Smelling Discharge Call your doctor if you observe: Fever of 101 or Higher and Using more than 1 pad per hour (for 2 hours) Suture Line Care: Avoid Pulling/Pushing and Avoid Pinching/Bending Cleanse incision/area with: Soap & Water and Keep Dressing Clean & Dry Follow Up Care Please Follow Up With: Usha Izquierdo MD When: Call [phone] to make an appointment for an incision check in 1-2 weeks. Test Results: Test results from this visit will be discussed in further detail at your follow-up appointment, if applicable. Discharge Plan Admission Admit Date/Time: 09/16/21 12:30 Attending Provider: Usha Izquierdo Primary Care Provider: Care Physician,Lidia Primary Discharge Orders/Prescriptions Prescriptions: New oxycodone-acetaminophen [Percocet] 5-325 mg tablet 1 tab PO Q6H PRN (Reason: pain) 7 Days Qty: 20 RF: 0 naproxen [naproxen] 500 MG tablet 500 mg PO BID PRN PRN (Reason: Pain) Qty: 30 RF: 1 Continued PNV-DHA 27 mg iron-1 mg -300 mg capsule 1 cap PO DAILY RF: 0 nifedipine [Procardia XL] 30 mg tablet extended release 24hr 30 mg PO DAILY RF: 0 Discontinued aspirin [Adult Low Dose Aspirin] 81 mg tablet,delayed release (DR/EC) 81 mg PO DAILY RF: 0 Humulin N NPH Insulin KwikPen 100 unit/mL (3 mL) insulin pen 14 unit subcut BID RF: 0 No Action (DME) OneTouch Verio test strips Strip See Rx Instructions .ROUTE .MEDSUPPLY Qty: 150 RF: 3 (DME) lancets [OneTouch Delica Plus Lancet] 33 gauge misc See Rx Instructions .ROUTE .MEDSUPPLY Qty: 150 RF: 0 (DME) pen needle, diabetic [BD Ultra-Fine Brunilda Pen Needle] 32 gauge x 5/32 needle See Rx Instructions .ROUTE .MEDSUPPLY Qty: 100 RF: 1 Referrals / Follow Up: Care Physician,No Primary [Primary Care Provider] - Disposition Disposition (needs filled in before D/C Order can be placed): Home, Self Care
[2021-09-16] MEDS: Oxytocin 30 units/NS 500 ml 30 UNITS/500 ML IV.SOLN 167 UNITS IV (17:45)
[2021-09-16] MEDS: 0.9% Saline Lock 10 ML Syringe IV (18:12)
[2021-09-16] MEDS: Ketorolac 30 MG/ML Syringe IV (18:13)
[2021-09-16 18:21] LABS: Bedside Glucose 91 mg/dL (74-106)
[2021-09-16 18:21] LABS: Bedside Glucose 87 mg/dL (74-106)
[2021-09-16 19:58] LABS: Pathology Specimen OB SEE PATHOLOGY REPORT
[2021-09-16] MEDS: Lactated Ringers 1,000 ML 100 ML IV (20:46)
[2021-09-17] VITALS (12 sets, daily range): BP systolic 97–113; BP diastolic 49–69; PULSE 74–95; RESP 16–18; TEMP 36.5–36.6; O2SAT 95–99
[2021-09-17] MEDS: Ketorolac 30 MG/ML Syringe IV ×2 (01:21→06:42)
[2021-09-17] MEDS: 0.9% Saline Lock 10 ML Syringe IV ×2 (01:35→06:41)
[2021-09-17] MEDS: Enoxaparin 40 MG/0.4 ML Syringe SC ×2 (04:29→16:29)
[2021-09-17] MEDS: Acetaminophen 500 MG Tablet 1000 MG PO ×4 (04:29→22:26)
[2021-09-17 06:37] LABS: Hematocrit 29.3 % (37-47); Hemoglobin 9.4 g/dL (12.0-15.0); Mean Corp Hgb Conc 32.1 g/dL (32-36); Mean Corpuscular Hgb 26.6 pg (27.0-32.0); Mean Corpuscular Volume 82.8 fL (81-99); Mean Platelet Vol. 11.7 fl (6.2-12.0); Platelet Count 162 K/mm3 (150-450); RBC Distribution Width CV 14.9 % (11.6-14.6); RBC Distribution Width SD 44.9 fl (35.1-43.9); Red Blood Count 3.54 M/mm3 (4.2-5.4); White Blood Count 8.8 K/mm3 (4.4-11.0)
--- NOTE | 2021-09-17 06:52 | PCM.PN.OB ---
Subjective Subjective Patient doing well without complaints. Tolerating PO. Ambulating and voiding without difficulty. feeding well. Denies chest pain, shortness of breath, calf pain/swelling, fevers, chills, lightheadedness. Objective Data Objective Data Vital Signs: Vital Signs Temp Pulse Resp BP Pulse Ox 97.7 F L 86 18 97/49 L 96 09/17/21 04:30 09/17/21 04:30 09/17/21 04:30 09/17/21 04:30 09/17/21 04:30 Oxygen Delivery Method Room Air Weight: 234 lb 9.149 oz Body Mass Index (BMI) 42.9 Intake & Output: Intake and Output for Last 24 Hours 09/15/21 09/16/21 09/17/21 23:59 23:59 23:59 Intake Total 2899.83 / 2899.83 Output Total 100 / 100 450 / 450 Balance 2799.83 / 2799.83 -450 / -450 Lab / Micro Data Result Diagrams: 09/17/21 06:30 09/16/21 13:00 Labs: Laboratory Results - last 24 hr 09/16/21 13:00: WBC 11.2 H, RBC 4.30, Hgb 11.5 L, Hct 35.4 L, MCV 82.3, MCH 26.7 L, MCHC 32.5, RDW Std Deviation 44.1 H, RDW Coeff of Edna 14.8 H, Plt Count 221, MPV 12.8 H, Immature Gran % (Auto) 0.500, Neut % (Auto) 80.5 H, Lymph % (Auto) 10.5 L, Willacy % (Auto) 7.9, Eos % (Auto) 0.4, Baso % (Auto) 0.2, Absolute Neuts (auto) 9.0 H, Absolute Lymphs (auto) 1.18, Nucleated RBC % 0 09/16/21 13:00: Blood Type B POSITIVE, Antibody Screen NEGATIVE 09/16/21 13:00: Creatinine 0.51 L, Estim Creat Clear Calc 129.89, Est GFR (MDRD) Af Amer 186, Est GFR (MDRD) Non-Af 154, Uric Acid 5.2, AST 30, ALT 16 09/16/21 13:00: PT 13.1, INR 1.0, APTT 26.2 09/16/21 13:04: POC Glucose 84 09/16/21 14:06: POC Glucose 91 09/16/21 15:11: POC Glucose 77 09/16/21 16:04: POC Glucose 87 09/16/21 18:16: POC Glucose 91 09/17/21 06:30: WBC 8.8, RBC 3.54 L, Hgb 9.4 L, Hct 29.3 L, MCV 82.8, MCH 26.6 L, MCHC 32.1, RDW Std Deviation 44.9 H, RDW Coeff of Edna 14.9 H, Plt Count 162, MPV 11.7 ROS Constitutional Constitutional: Reports systems reviewed and no addt'l complaints, except as documented Cardiovascular Cardiovascular: Reports systems reviewed and no addt'l complaints, except as documented Respiratory/Chest Respiratory/Chest: Reports systems reviewed and no addt'l complaints, except as documented Gastrointestinal Gastrointestinal: Reports systems reviewed and no addt'l complaints, except as documented Physical Exam Const alert, oriented x3 and no apparent distress HEENT Head and Scalp: atraumatic Resp normal respiratory effort GI soft to palpation and non-tender Bimanual Exam - Vag & Uterus: uterus non-tender Uterus Palpation: uterus fundus firm (below Umbilicus) Assessment & Plan (1) delivery delivered: COMMENT: RLTCS BS girl Rylynn diabetes non reactive nst chtn 37 (2) Gestational diabetes: QUALIFIERS: Gestational diabetes mellitus control: insulin-controlled Trimester: third trimester Qualified Code(s): O24.414 - Gestational diabetes mellitus in , insulin controlled COMMENT: not well controlled, needing to continue increasing dosage of insulin, will proceed with immediate delivery due to FHT and BS management. (3) Chronic hypertension: COMMENT: on procardia, delivery at 38w, CMP, CBC, urine pro creat, growth at 32w nl, and 36w nl, twice weekly NST at 32-delivery. Send referral to [facility] PLAN: s/p LTCS PPD # 1 1. routine post care 2. breast feeding- support given 3. rh positive 4. rubella immune
[2021-09-17 07:01] LABS: Bedside Glucose 75 mg/dL (74-106)
[2021-09-17] MEDS: Naproxen 500 MG Tablet PO ×2 (13:23→21:09)
[2021-09-17] MEDS: Senna/Docusate Sodium 1 Tablet PO (17:20)
[2021-09-17] MEDS: oxyCODONE 5 MG Tablet PO (22:26)
[2021-09-18 00:22] VITALS: BP 107/54; PULSE 84; RESP 18; TEMP 36.9
[2021-09-18] MEDS: Enoxaparin 40 MG/0.4 ML Syringe SC (05:20)
[2021-09-18] MEDS: Naproxen 500 MG Tablet PO (05:20)
[2021-09-18] MEDS: Acetaminophen 500 MG Tablet 1000 MG PO (05:20)
--- NOTE | 2021-09-18 07:15 | PCM.PN.OB ---
Subjective Subjective Patient doing well without complaints. Tolerating PO. Ambulating and voiding without difficulty. feeding well. Denies chest pain, shortness of breath, calf pain/swelling, fevers, chills, lightheadedness. Objective Data Objective Data Vital Signs: Vital Signs Temp Pulse Resp BP Pulse Ox 98.4 F 84 18 107/54 L 97 09/18/21 00:22 09/18/21 00:22 09/18/21 00:22 09/18/21 00:22 09/17/21 20:25 Oxygen Delivery Method Room Air Weight: 234 lb 9.149 oz Body Mass Index (BMI) 42.9 Intake & Output: Intake and Output for Last 24 Hours 09/16/21 09/17/21 09/18/21 23:59 23:59 23:59 Intake Total 2899.83 / 2899.83 973.33 / 973.33 Output Total 100 / 100 1350 / 1350 Balance 2799.83 / 2799.83 -376.67 / -376.67 Lab / Micro Data Result Diagrams: 09/17/21 06:30 09/16/21 13:00 ROS Constitutional Constitutional: Reports systems reviewed and no addt'l complaints, except as documented Cardiovascular Cardiovascular: Reports systems reviewed and no addt'l complaints, except as documented Respiratory/Chest Respiratory/Chest: Reports systems reviewed and no addt'l complaints, except as documented Gastrointestinal Gastrointestinal: Reports systems reviewed and no addt'l complaints, except as documented Physical Exam Const alert, oriented x3 and no apparent distress HEENT Head and Scalp: atraumatic Resp normal respiratory effort GI soft to palpation and non-tender Inspection: incision intact, healing well and drainage (none) Bimanual Exam - Vag & Uterus: uterus non-tender Uterus Palpation: uterus fundus firm (below Umbilicus) Assessment & Plan (1) delivery delivered: COMMENT: SM RLTCS BS girl Rylynn diabetes non reactive nst chtn 37 (2) Gestational diabetes: QUALIFIERS: Gestational diabetes mellitus control: insulin-controlled Trimester: third trimester Qualified Code(s): O24.414 - Gestational diabetes mellitus in , insulin controlled COMMENT: not well controlled, needing to continue increasing dosage of insulin, will proceed with immediate delivery due to FHT and BS management. (3) Chronic hypertension: COMMENT: on procardia, delivery at 38w, CMP, CBC, urine pro creat, growth at 32w nl, and 36w nl, twice weekly NST at 32-delivery. Send referral to [facility] PLAN: Plan s/p LTCS PPD # 2 1. routine post care 2. breast feeding- support given 3. rh positive 4. rubella immune
[2021-09-18 07:59] VITALS: BP 113/69; PULSE 84; RESP 16; TEMP 36.9; O2SAT 97
== END 2021-09-18 10:38 | disposition home or self-care (01) | DRG 784 ==
PROVIDERS: Admitting Provider Obstetrics & Gynecology; Visit Provider Obstetrics & Gynecology
PROC: 10D00Z1 Extraction of Products of Conception, Low, Open Approach (ICD-10-PCS; CPT 59514; principal; 2021-09-16 15:45)
DX: O24.424 Gestational diabetes mellitus in childbirth, insulin controlled (principal); O41.03X0 Oligohydramnios, third trimester, not applicable or unspecified; O10.02 Pre-existing essential hypertension complicating childbirth; Z79.4 Long term (current) use of insulin; O34.219 Maternal care for unspecified type scar from previous cesarean delivery; O99.213 Obesity complicating pregnancy, third trimester; O76 Abnormality in fetal heart rate and rhythm complicating labor and delivery; Z3A.38 38 weeks gestation of pregnancy; Z37.0 Single live birth; Z79.82 Long term (current) use of aspirin; Z79.899 Other long term (current) drug therapy
CPT/HCPCS: 59025; 59050; 82565; 82962; 84450; 84460; 84550; 85025; 85027; 85610; 85730; 86850; 86900; 86901; 88302; 99218; J7120; A4216; G0378; J2405; J7799

== ENCOUNTER → 2021-09-16 | Outpatient (CLI) | payer BC, SELFPAY ==
--- NOTE | 2021-09-16 08:50 | US_ITS ---
STUDY: SECOND AND THIRD TRIMESTER OBSTETRICAL ULTRASOUND - LIMITED REASON FOR EXAM: Female, 26 years old NATALYA ONLY LMP: 12/30/2020 PRIOR ULTRASOUND: Comparison is made with prior study dated 09/09/2021. TECHNIQUE: Transabdominal TECHNICAL QUALITY: Adequate. FINDINGS: There is a single intrauterine fetus. The fetus is in a cephalic presentation. There is demonstrated cardiac activity with a heart rate of 145 bpm. There is a normal amniotic fluid volume. The largest amniotic fluid pocket measures 4.34 cm. The amniotic fluid index (NATALYA) is 9.83 cm. The placenta is fundal in location. There are Grade 3 placental changes. BIOMETRY: Age by LMP: 37 weeks, 1 days. VARUN by LMP: 10/06/2021. age by prior US: 36 weeks, 3 days. VARUN by prior US: 10/11/2021. US/OB Limited (No Biometrics) IMPRESSION: Normal amniotic fluid index. Electronically Signed: Wilmer Ramey MD at 14:53 EDT ,
[2021-09-16 11:22] LABS: Protein, Urine (Random) 62.9 mg/dL (<11.9); Protein:Creat Ratio 214 mg/g CRE (0-200)
== END | disposition home or self-care (01) ==
PROVIDERS: Nurse Practitioner Women's Health; Referring Provider Obstetrics & Gynecology; Visit Provider Obstetrics & Gynecology
DX: O09.90 Supervision of high risk pregnancy, unspecified, unspecified trimester (principal); I10 Essential (primary) hypertension
CPT/HCPCS: 76815; 82570; 84156